=== PATIENT | male | born 2000 | race African-American/Black ===

== ENCOUNTER → 2025-03-24 14:24 | Outpatient (BNVA) | payer OTHER, SELFPAY | PROVIDERS: Visit Provider Physician Assistant | DX: S46.911A Strain of unspecified muscle, fascia and tendon at shoulder and upper arm level, right arm, initial encounter (principal); W18.30XA Fall on same level, unspecified, initial encounter | CPT/HCPCS: 73030; 99204 ==

== ENCOUNTER → 2025-03-27 14:37 | Outpatient (BNVA) | payer OTHER, SELFPAY | PROVIDERS: Visit Provider Physician Assistant Medical | DX: S40.011A Contusion of right shoulder, initial encounter (principal); W18.30XA Fall on same level, unspecified, initial encounter; Z02.79 Encounter for issue of other medical certificate | CPT/HCPCS: 99213 ==